=== PATIENT | female | born 1990 | race American Indian/Alaskan Native ===

== ENCOUNTER 2019-10-28 04:34 | Emergency (ER) | payer SELFPAY ==
[2019-10-28 05:17] VITALS: BP 137/87
--- NOTE | 2019-10-28 05:57 | XRay Report ---
CHEST 1 VIEW INDICATION / CLINICAL INFORMATION: Chest Pain. COMPARISON: None available. FINDINGS: SUPPORT DEVICES: None. HEART / MEDIASTINUM: No significant abnormality. LUNGS / PLEURA: No significant pulmonary or pleural abnormality. No pneumothorax. ADDITIONAL FINDINGS: No significant additional findings. IMPRESSION: 1. No acute findings. Signer Name: Madeleine Jose MD Signed: 10/28/2019 5:53 AM Workstation Name: [id number]
--- NOTE | 2019-10-28 09:46 | Emergency Department Report ---
ED Shortness of Breath HPI - General Chief Complaint: Dyspnea/Respdistress Stated Complaint: DIFFICULTY IN BREATHING Time Seen by Provider: 10/28/19 09:41 Source: patient Mode of arrival: Ambulatory Limitations: No Limitations - History of Present Illness Initial Comments: 29-year-old -[place] female presents to the emergency room complaining of shortness of breath that started about 3 AM. Patient reports at that time she was feeling very anxious. Patient states that she had another episode like this back in August. Patient does admit that she has a lot going on as she is trying to move and also pay her rent. Patient denies any chest pain no nausea no vomiting no abdominal pain fever chills or diarrhea. Patient states she is really not short of breath she just felt her chest being heavy. Patient denies any past medical history. MD Complaint: anxiety -: During the night Pain Scale: 0 Associated Symptoms: denies other symptoms Treatments Prior to Arrival: none - Related Data Previous Rx's Medication Instructions Recorded Last Taken Type Hydrocort/Pramoxine [Proctofoam-Hc] 10 gm FL QID #1 can 07/24/18 Unknown Rx Hydrocortisone [Anucort-HC SUPPOS] 25 mg RC BID #14 supp.rect 07/24/18 Unknown Rx Naproxen [Naprosyn] 500 mg PO TID PRN #20 tablet 07/24/18 Unknown Rx Allergies Allergy/AdvReac Type Severity Reaction Status Date / Time No Known Allergies Allergy Unverified 07/23/18 17:22 ED Review of Systems ROS: Stated complaint: DIFFICULTY IN BREATHING Other details as noted in HPI Comment: All other systems reviewed and negative ED Past Medical Hx - Past Medical History Previous Medical History?: No Additional medical history: takes propanolol - Surgical History Past Surgical History?: Yes Additional Surgical History: biopsy - Social History Smoking Status: Never Smoker Substance Use Type: None - Medications Home Medications: Home Medications Medication Instructions Recorded Confirmed Last Taken Type Hydrocort/Pramoxine [Proctofoam-Hc] 10 gm FL QID #1 can 07/24/18 Unknown Rx Hydrocortisone [Anucort-HC SUPPOS] 25 mg RC BID #14 supp.rect 07/24/18 Unknown Rx Naproxen [Naprosyn] 500 mg PO TID PRN #20 tablet 07/24/18 Unknown Rx ED Physical Exam - General Limitations: No Limitations General appearance: alert, in no apparent distress - Head Head exam: Present: atraumatic, normocephalic - Eye Eye exam: Present: normal appearance - ENT ENT exam: Present: mucous membranes moist - Neck Neck exam: Present: normal inspection - Respiratory Respiratory exam: Present: normal lung sounds bilaterally. Absent: respiratory distress - Cardiovascular Cardiovascular Exam: Present: regular rate, normal rhythm. Absent: systolic murmur, diastolic murmur, rubs, gallop - GI/Abdominal GI/Abdominal exam: Present: soft, normal bowel sounds - Extremities Exam Extremities exam: Present: normal inspection - Back Exam Back exam: Present: normal inspection - Neurological Exam Neurological exam: Present: alert, oriented X3, normal gait - Psychiatric Psychiatric exam: Present: normal affect, normal mood - Skin Skin exam: Present: warm, dry, intact, normal color. Absent: rash ED Course Vital Signs 10/28/19 10/28/19 04:40 05:14 Temperature 98.3 F Pulse Rate 116 H 104 H Respiratory 18 22 Rate Blood Pressure 151/98 Blood Pressure 137/87 [Right] O2 Sat by Pulse 99 99 Oximetry ED Medical Decision Making - EKG Data EKG shows normal: sinus rhythm Rate: normal, tachycardia - Radiology Data Radiology results: report reviewed Patient Name: SIENA BIRD Gender: Female Date of : 1990 Referring Provider: GIGI ED Organization: [facility] Accession Number: [id number] Requested Date: October 28, 2019 05:19 Report Status: Final Requested Procedure: 1 Procedure Description: XR chest 1V ap Modality: XR Findings Reporting MD: Madeleine Jose Dictation Time: October 28, 2019 04:53 Back Grinder: Not available Dean Of Students Date: CHEST 1 VIEW INDICATION / CLINICAL INFORMATION: Chest Pain. COMPARISON: None available. FINDINGS: SUPPORT DEVICES: None. HEART / MEDIASTINUM: No significant abnormality. LUNGS / PLEURA: No significant pulmonary or pleural abnormality. No pneumothorax. ADDITIONAL FINDINGS: No significant additional findings. IMPRESSION: 1. No acute findings. Signer Name: Madeleine Jose MD Signed: 10/28/2019 4:53 AM Workstation Name: [employer] - Medical Decision Making 29-year-old -[place] female presents to the emergency room complaining of shortness of breath that started about 3 AM. Patient reports at that time she was feeling very anxious. Patient states that she had another episode like this back in August. Patient does admit that she has a lot going on as she is trying to move and also pay her rent. Patient denies any chest pain no nausea no vomiting no abdominal pain fever chills or diarrhea. Patient states she is really not short of breath she just felt her chest being heavy. Patient denies any past medical history. Discussed with patient about breathing techniques for anxiety, discussed with patient she can follow-up with [facility] Dr. Bella. Her chest x-ray was negative for any acute abnormalities or EKG is stable just show some sinus tachycardic. Critical care attestation.: If time is entered above; I have spent that time in minutes in the direct care of this critically ill patient, excluding procedure time. ED Disposition Clinical Impression: Anxiety Disposition: DC-01 TO HOME OR SELFCARE Is pt being admited?: No Does the pt Need Aspirin: No Condition: Stable Instructions: Anxiety (ED) Additional Instructions: I recommend for you to follow-up at mental health and a primary care provider. Please try to do breathing techniques as this does help. Referrals: PRIMARY CAREMD [Primary Care Provider] - 3-5 Days [facility] [Outside] - 3-5 Days [facility] [Outside] - 3-5 Days [facility] [Outside] - 3-5 Days [facility] [Provider Group] - 3-5 Days LOREN ANAND MD [Staff Physician] - 3-5 Days Forms: Work/School Release Form(ED)
== END 2019-10-28 10:31 | disposition home or self-care (01) ==
LOC: ED 04:34
DX: F41.9 Anxiety disorder, unspecified (principal); Z79.899 Other long term (current) drug therapy
CPT/HCPCS: 71045; 93005; 99283